=== PATIENT | female | born 1945 | race Caucasian/White ===

== ENCOUNTER 2017-01-30 14:28 | Inpatient (IN) | payer OTHER ==
[~2017-01-30] VITALS: Ht 149.9 cm; Wt 64.2 kg
[~2017-01-30 14:28] MED LIST: ASPIR 8181 MG PO; COR6 PO; D3 20002000 IU PO; DOC-Q-LACE100 MG PO; ENALAPRIL MALEA20 MG PO; FOLIC ACID1 MG PO; FOSAMAX70 MG PO; GABAPENTIN300 M2 PO; LORAZEPAM0.5 MG PO; METHOTREXATE2.5 M2 PO; NOR5 PO; TERBINAFINE250 MG PO; ZOCOR40 MG PO
[2017-01-30 15:43] LABS: BASOPHIL % 0.3 % (0-2); PLATELET COUNT 146 x10^3mcL (130-400)
[2017-01-30] MEDS ORDERED: ALENDRONATE SOD70 M2 PO (15:48)
[2017-01-30 15:52] LABS: CALCIUM 7.8 mg/dL (8.5-10.1); CARBON DIOXIDE 26.2 mmol/L (21-32); POTASSIUM SERUM 3.8 mmol/L (3.5-5.1)
[2017-01-30 16:03] LABS: BILIRUBIN TOTAL 0.4 mg/dL (0.20-1.00); MAGNESIUM 1.7 mg/dL (1.8-2.4); TOTAL PROTEIN, SERUM 6.4 g/dL (6.4-8.2)
[2017-01-30 16:20] LABS: ALBUMIN 3.1 g/dL (3.4-5.0)
[2017-01-30 16:44] LABS: CK-MB 0.8 ng/mL (0-3.6)
[2017-01-30 18:54] LABS: microscopic required? YES; urine erythrocyte NEGATIVE (NEGATIVE)
[2017-01-30 19:07] VITALS: BP 135/66
[2017-01-30 19:09] VITALS: Ht 149.9 cm; Wt 64.2 kg
[2017-01-30 21:23] LABS: CHOLESTEROL/HDL RATIO 1.9
[2017-01-30 21:24] LABS: FREE T4 0.85 ng/dL (0.76-1.46); FREE THYROXINE INDEX 2.2 ug/dL (1.4-4.5); T4(THYROXINE) 6.7 ug/dL (4.7-13.3)
[2017-01-30 21:28] LABS: AMPHETAMINE QUAL UR NONE DETECTED (NEG <=1000)
[2017-01-30 21:32] VITALS: BP 117/46
[2017-01-30 21:36] LABS: T3 TOTAL 0.94 ng/mL
[2017-01-31 05:33] VITALS: BP 117/48
[2017-01-31 07:15] LABS: BASOPHIL % 0.3 % (0-2); PLATELET COUNT 153 x10^3mcL (130-400)
[2017-01-31 08:16] LABS: CALCIUM 8.3 mg/dL (8.5-10.1); CARBON DIOXIDE 24.7 mmol/L (21-32); CHLORIDE SERUM 110 mmol/L (98-107); CREATININE SERUM 0.7 mg/dL (0.6-1.0); GFR1 > 60 mL/min; GLUCOSE SERUM 88 mg/dL (74-106); PHOSPHOROUS 3.1 mg/dL (2.5-4.9); POTASSIUM SERUM 3.6 mmol/L (3.5-5.1); SODIUM SERUM 143 mmol/L (136-145)
[2017-01-31 10:00] VITALS: BP 112/64
[2017-01-31 13:25] VITALS: BP 141/57
[2017-01-31 17:29] VITALS: BP 133/60
[2017-01-31 21:58] VITALS: BP 141/54
[2017-02-01 05:13] VITALS: BP 118/49
[2017-02-01 06:56] LABS: CALCIUM 8.7 mg/dL (8.5-10.1); CHLORIDE SERUM 109 mmol/L (98-107); CREATININE SERUM 0.7 mg/dL (0.6-1.0); GFR1 > 60 mL/min; GLUCOSE SERUM 87 mg/dL (74-106); POTASSIUM SERUM 4.1 mmol/L (3.5-5.1); SODIUM SERUM 142 mmol/L (136-145)
[2017-02-01 06:57] LABS: BASOPHIL % 0.5 % (0-2); PLATELET COUNT 167 x10^3mcL (130-400)
[2017-02-01 07:16] LABS: RED CELL DISTRIBUTION WIDTH 14.9 % (11.5-14.5)
[2017-02-01 09:22] VITALS: BP 136/53
[2017-02-01] MEDS ORDERED: TRAMADOL HCL50 MG PO (11:01)
[2017-02-01 11:06] VITALS: BP 136/53
[2017-02-01 13:38] VITALS: BP 164/59
[2017-02-01] MEDS ORDERED: EASY TOUCH MC (13:43)
[2017-02-01] MEDS ORDERED: TEST STRIPS1 EACH MC (13:43)
[2017-02-02] MEDS ORDERED: BACTROBAN22 TOP (09:05)
== END 2017-02-01 14:00 | disposition home or self-care (01) | DRG 91 ==
LOC: ED 14:28 → DU 17:50
PROVIDERS: Emergency Medicine; ADMIT Family Medicine
DX: G92 Toxic encephalopathy (principal); N17.0 Acute kidney failure with tubular necrosis; N39.0 Urinary tract infection, site not specified; E44.0 Moderate protein-calorie malnutrition; I95.89 Other hypotension; E83.42 Hypomagnesemia; G89.29 Other chronic pain; M54.16 Radiculopathy, lumbar region; R73.03 Prediabetes; M19.90 Unspecified osteoarthritis, unspecified site; M06.9 Rheumatoid arthritis, unspecified; F41.9 Anxiety disorder, unspecified; M54.41 Lumbago with sciatica, right side; H04.123 Dry eye syndrome of bilateral lacrimal glands; T40.7X5A Adverse effect of cannabis (derivatives), initial encounter; Y92.018 Other place in single-family (private) house as the place of occurrence of the external cause; Z88.6 Allergy status to analgesic agent
CPT/HCPCS: 36600; 80307; 83880; 84439; J0696; J7030; Q0092

== ENCOUNTER 2017-03-24 04:04 | Inpatient (IN) | payer OTHER ==
[~2017-03-24] VITALS: Ht 149.9 cm; Wt 68.0 kg
[~2017-03-24 04:04] MED LIST changes: +ALENDRONATE SOD70 M2 PO; +BACTROBAN22 TOP; +EASY TOUCH MC; +TEST STRIPS1 EACH MC; +TRAMADOL HCL50 MG PO
[2017-03-24 04:35] LABS: BASOPHIL % 0.5 % (0-2); PLATELET COUNT 159 x10^3mcL (130-400)
[2017-03-24 04:36] LABS: RED CELL DISTRIBUTION WIDTH 14.7 % (11.5-14.5)
[2017-03-24 04:46] LABS: CARBON DIOXIDE 25.4 mmol/L (21-32); CREATININE SERUM 1.1 mg/dL (0.6-1.0)
[2017-03-24 04:54] LABS: UA SPECIFIC GRAVITY 1.015 (1.005-1.035); microscopic required? YES; urine erythrocyte 3+ (NEGATIVE)
[2017-03-24 05:01] LABS: BILIRUBIN TOTAL 0.3 mg/dL (0.20-1.00); TOTAL PROTEIN, SERUM 6.7 g/dL (6.4-8.2)
[2017-03-24 05:17] LABS: CK-MB 0.6 ng/mL (0-3.6)
[2017-03-24 07:17] LABS: MAGNESIUM 1.9 mg/dL (1.8-2.4); PHOSPHOROUS 3.4 mg/dL (2.5-4.9)
[2017-03-24 07:22] LABS: CHOLESTEROL/HDL RATIO 1.9
[2017-03-24 07:29] LABS: FREE T4 1.03 ng/dL (0.76-1.46); FREE THYROXINE INDEX 2.7 ug/dL (1.4-4.5); T4(THYROXINE) 7.5 ug/dL (4.7-13.3)
[2017-03-24 07:42] VITALS: BP 100/50
[2017-03-24 13:37] VITALS: BP 136/53
[2017-03-24] MEDS ORDERED: ALENDRONATE SOD70 M2 PO (14:24)
[2017-03-24 17:49] VITALS: BP 150/61
[2017-03-24 21:47] VITALS: BP 129/56
[2017-03-25 06:11] LABS: BASOPHIL % 0.3 % (0-2); PLATELET COUNT 138 x10^3mcL (130-400)
[2017-03-25 06:30] VITALS: BP 115/63
[2017-03-25 06:36] LABS: CALCIUM 7.7 mg/dL (8.5-10.1); CARBON DIOXIDE 19.2 mmol/L (21-32); CHLORIDE SERUM 111 mmol/L (98-107); CREATININE SERUM 0.8 mg/dL (0.6-1.0); GFR1 > 60 mL/min; GLUCOSE SERUM 114 mg/dL (74-106); PHOSPHOROUS 2.2 mg/dL (2.5-4.9); POTASSIUM SERUM 3.3 mmol/L (3.5-5.1); SODIUM SERUM 140 mmol/L (136-145)
[2017-03-25 08:20] VITALS: BP 145/62
[2017-03-25 10:00] VITALS: BP 121/59
[2017-03-25 17:55] VITALS: BP 127/67
[2017-03-25 21:36] VITALS: BP 141/57
[2017-03-26 05:38] VITALS: BP 120/59
[2017-03-26 05:48] LABS: BASOPHIL % 0.2 % (0-2); PLATELET COUNT 145 x10^3mcL (130-400)
[2017-03-26 06:16] LABS: CALCIUM 8.3 mg/dL (8.5-10.1); CARBON DIOXIDE 19.9 mmol/L (21-32); CHLORIDE SERUM 114 mmol/L (98-107); CREATININE SERUM 0.8 mg/dL (0.6-1.0); GFR1 > 60 mL/min; GLUCOSE SERUM 104 mg/dL (74-106); PHOSPHOROUS 1.8 mg/dL (2.5-4.9); POTASSIUM SERUM 3.6 mmol/L (3.5-5.1); SODIUM SERUM 145 mmol/L (136-145)
[2017-03-26 06:35] LABS: RED CELL DISTRIBUTION WIDTH 14.6 % (11.5-14.5)
[2017-03-26 09:28] VITALS: BP 132/57
[2017-03-26 14:00] VITALS: BP 124/63
[2017-03-26 17:36] VITALS: BP 121/54
[2017-03-26 20:20] LABS: AMPHETAMINE QUAL UR NONE DETECTED (NEG <=1000)
[2017-03-26 21:25] VITALS: BP 128/50
[2017-03-27 06:09] VITALS: BP 146/69
[2017-03-27 07:43] LABS: CALCIUM 8.3 mg/dL (8.5-10.1); CARBON DIOXIDE 20.7 mmol/L (21-32); CHLORIDE SERUM 111 mmol/L (98-107); CREATININE SERUM 0.8 mg/dL (0.6-1.0); GFR1 > 60 mL/min; GLUCOSE SERUM 102 mg/dL (74-106); MAGNESIUM 1.7 mg/dL (1.8-2.4); PHOSPHOROUS 2.4 mg/dL (2.5-4.9); POTASSIUM SERUM 3.5 mmol/L (3.5-5.1); SODIUM SERUM 143 mmol/L (136-145)
[2017-03-27 07:44] LABS: BASOPHIL % 0.2 % (0-2); PLATELET COUNT 144 x10^3mcL (130-400)
[2017-03-27 07:46] LABS: RED CELL DISTRIBUTION WIDTH 14.6 % (11.5-14.5)
[2017-03-27 09:34] VITALS: BP 153/66
[2017-03-27] MEDS ORDERED: LEVAQUIN250 M1 PO (11:55)
[2017-03-27] MEDS ORDERED: FLA500 PO (11:57)
[2017-03-27] MEDS ORDERED: LAC PO (11:58)
[2017-03-27] MEDS ORDERED: NOR5 PO (11:59)
[2017-03-27] MEDS ORDERED: ANUHCC PR (11:59)
[2017-03-27] MEDS ORDERED: COR3 PO (11:59)
[2017-03-27] MEDS ORDERED: V10 PO (12:00)
[2017-03-27] MEDS ORDERED: CLOPIDOGREL75 M1 PO (12:01)
[2017-03-27] MEDS ORDERED: MIRUD PO (12:06)
[2017-03-27] MEDS ORDERED: PROTONIX40 MG/Pac1 PO (12:07)
[2017-03-27] MEDS ORDERED: BACO TOP (12:09)
[2017-03-27] MEDS ORDERED: HIBICLENS118 ML TOP (12:09)
[2017-03-27 13:32] VITALS: BP 136/59
[2017-03-27] MEDS ORDERED: PHARMASSURE FO0.4 MG PO (14:35)
[2017-03-27 14:37] VITALS: BP 136/59
== END 2017-03-27 16:00 | disposition home or self-care (01) | DRG 385 ==
LOC: ED 04:04 → DU 06:04
PROVIDERS: Emergency Medicine; Internal Medicine Gastroenterology; ADMIT Family Medicine
PROC: 0DBL8ZX Excision of Transverse Colon, Via Natural or Artificial Opening Endoscopic, Diagnostic (ICD-10-PCS; 2017-03-25)
PROC: 0DBM8ZX Excision of Descending Colon, Via Natural or Artificial Opening Endoscopic, Diagnostic (ICD-10-PCS; 2017-03-25)
PROC: 0DBK8ZX Excision of Ascending Colon, Via Natural or Artificial Opening Endoscopic, Diagnostic (ICD-10-PCS; principal; 2017-03-25 10:30)
DX: K51.00 Ulcerative (chronic) pancolitis without complications (principal); N17.0 Acute kidney failure with tubular necrosis; N39.0 Urinary tract infection, site not specified; E44.0 Moderate protein-calorie malnutrition; J98.11 Atelectasis; E02 Subclinical iodine-deficiency hypothyroidism; R73.03 Prediabetes; R31.9 Hematuria, unspecified; I10 Essential (primary) hypertension; M06.9 Rheumatoid arthritis, unspecified; E83.39 Other disorders of phosphorus metabolism; E87.6 Hypokalemia; E83.42 Hypomagnesemia; Z79.82 Long term (current) use of aspirin; Z95.2 Presence of prosthetic heart valve; Z68.30 Body mass index [BMI] 30.0-30.9, adult
CPT/HCPCS: 45378; 83880; 84439; 87046; 87046-59; 94150; G0480; J0696; J1200; J1610; J1956; J2250; J2310; J2405; J2543; J2765; J3010; J3475; J3490; J7030; J7040; Q0092; Q9967